=== PATIENT | male | born 1990 | race Caucasian/White ===

== ENCOUNTER 2017-04-26 11:28 | Emergency (ER) | payer OTHER ==
[~2017-04-26] VITALS: Ht 185.4 cm; Wt 106.4 kg
[~2017-04-26 11:28] MED LIST: ADD/10 PO
[2017-04-26 11:30] VITALS: TEMP 36.4; Ht 185.4 cm; Wt 106.4 kg
--- NOTE | 2017-04-26 12:33 | DIAGNOSTIC IMAGING REPORT ---
L-SPINE MIN 4 VIEWS ROUTINE CLINICAL HISTORY: 26 years-old Male presenting with lumbar pain. TECHNIQUE: Frontal, bilateral oblique, and lateral views lumbar spine and coned in lateral view of the lumbosacral junction were obtained. COMPARISON: 04/16/2014. FINDINGS: Pars defect of L5 on left and possibly on the right, although this is less well demonstrated. Previously suggested retrolisthesis of L3 on L4 is likely due to technique/projectional. Normal lumbar lordosis without evidence of kieran or retrolisthesis. Vertebral body heights and intervertebral disc spaces preserved. No osseous neural foraminal narrowing. No radiographic evidence of acute fracture or subluxation. Nonobstructive bowel gas pattern. IMPRESSION: Left pars defect at L5 and possible right pars defect at L5. Otherwise normal lumbar spine. Electronically signed by: Derrick Lowe M.D. 04/26/2017 12:32 PM Dictated Date/Time: 04/26/2017 12:29 PM
[2017-04-26] MEDS ORDERED: TRAM-10 PO (13:45)
[2017-04-26 13:52] VITALS: BP 110/99; PULSE 66; O2SAT 99
[2017-04-26] MEDS ORDERED: ACET-749 PO (13:53)
--- NOTE | 2017-04-27 06:44 | EMERGENCY ROOM VISIT NOTE ---
ED Visit Note First contact with patient: 11:39 Chief Complaint: Lower back pain. History of Present Illness: Mr. Santos is a 26-year-old white male who ambulates into the ED complaining of lumbar back pain. Historically patient denies any previous significant injuries or surgeries to the lumbar back. Patient reports he was to see his primary care provider for his ongoing lumbar back pain 2 weeks ago and reports x-rays were performed but he never received results of his x-rays; his x-rays were performed to the [facility] and I was able to obtain a copy which showed a negative lumbar sacral spine equivocal findings of left L5 pars deficit was noted and recommended additional or repeat radiography or MRI. He reports on discharge from his PCPs office he was prescribed Flexeril which has not been helping his pain. He reports his pain has been gone on for the last 5-6 months. He reports initially it was mild and has gradually gotten worse. He denies any precipitating traumatic event. Currently he describes his pain as a sharp sensation. He places his discomfort in the L2-L3 area just right of the spine. He reports radiation of his pain down to the L5 area. He rates his discomfort 8/10. His pain worsens with palpation, flexion and laterally bending of the lumbar spine. He has not identified any alleviating factors related to the pain. He reports he has been taken his muscle relaxants without relief of his discomfort. He denies any associated symptoms including fevers, chills, sweats, skin eruptions, skin color changes, abdominal pain, nausea, vomiting, diarrhea, constipation, rectal bleeding, black/tarry stools, or nares symptoms, hematuria, genital paresthesias , bowel and bladder dysfunction, lower extremity weakness/numbness/tingling. Review of Systems: As noted above in history of present illness. 8 body systems were reviewed and found to be negative as noted above. Past Medical History: Patient denies. Current Medications: Patient denies. Allergies to Medications: Tramadol, penicillin, ketorolac tromethamine. Social History: Patient is currently employed; he feels safe in his home environment; he admits to tobacco use. Physical Examination: Vital Signs: Date Time Temp Pulse Resp B/P (MAP) Pulse Ox O2 Delivery O2 Flow Rate FiO2 04/26/17 13:52 66 18 110/99 99 Room Air 04/26/17 11:30 36.4 75 18 134/89 98 Room Air GENERAL: 26-year-old male in mild distress due to pain, nontoxic-appearing, afebrile and hemodynamically stable. NEUROLOGICAL: Awake, alert and oriented to person, place and time. Answering questions appropriately and following commands. Normal gait. SKIN: Warm, dry and pink. No soft tissue eruptions or trauma noted. HEENT: Atraumatic and normocephalic. BACK: No tenderness over the bony cervical and thoracic spine. Mild tenderness in the L2-L3 area just right of the spine. No local paraspinous muscle spasm. No tenderness over the sacroiliac joints. Decreased range of motion in flexion, extension and lateral bending at the waist due to pain. Negative straight leg raise test. No CVA tenderness. THORAX: Lungs sounds are clear to auscultation and equal bilaterally with symmetrical chest wall. ABDOMEN: Flat, soft and nontender. Positive bowel sounds in all quadrants. No guarding, rigidity or organomegaly. LOWER EXTREMITIES: Moves all extremities well on command and with purpose. 2+ patellar and Achilles deep tendon reflexes intact and equal bilaterally. 4/5 muscle strength in hip flexion, extension, abduction and abduction, internal and external rotation. Knee flexion and extension and ankle plantar flexion and dorsiflexion. Distal pulses and capillary refill are intact. He was able to distinguish light sensations through all dermatomes of the feet. ED Course: Patient is assessed as noted above. Patient's medication list was reviewed. Lumbar Spine X-Rays: Were reviewed by myself and read by the radiologist showing left pars deficit at L5 and possible right pars deficit at L5, normal lumbar lordosis without evidence of anterior or retrolisthesis, 4T Mayela body heights and disc spaces preserved, no osseous normal for any narrowing and no evidence of acute fracture or subluxation. Patient was educated about today's findings and instructed on his treatment plan ; he verbalized understanding and agreement with this plan. Should be noted that at time of discharge patient was prescribed Tylenol with Codeine and felt this would not help his pain because of previous oral surgery required Percocet. I did not feel comfortable prescribing Percocet; I did check the state database and no red flags were noted. Clinical Impression: Lumbar back pain. Pars deficit L5 bilaterally. Decision-Making: Initially my differential diagnosis I considered fracture, subluxation, muscle spasm, muscle strain, herniated disc and other causes. Disposition: Patient discharged home in stable condition; prior to departure he was reassessed and subjectively reported he was feeling the same. Plan: Comfort measures including a sliding pain scale of ibuprofen, acetaminophen and Tylenol No. 3 and ice were discussed with the patient. Patient was encouraged to follow-up with Dr. Machado, back specialist, for definitive care and treatment. Patient was encouraged return ED for worsening pain, fevers, abdominal pain, genital paresthesias, bowel and bladder dysfunction, leg weakness/numbness/ tingling or any new/concerning symptoms.
== END 2017-04-26 14:00 | disposition home or self-care (01) ==
LOC: C.EDB 11:31 → C.EDD 14:00
DX: M54.5 Low back pain (principal); Z72.0 Tobacco use

== ENCOUNTER 2017-09-01 12:34 | Emergency (ER) | payer OTHER ==
[~2017-09-01] VITALS: Ht 185.4 cm; Wt 95.2 kg
[~2017-09-01 12:34] MED LIST changes: +ACET300T3 PO; -ADD/10 PO
[2017-09-01 12:43] VITALS: TEMP 37.2; Ht 185.4 cm; Wt 95.2 kg
[2017-09-01] MEDS ORDERED: ONDANSETRON INJ 2 MG/ML 2 ML VIAL IV STA (12:55)
[2017-09-01] MEDS ORDERED: MoRPHine SULFATE 4 MG/ML 1 ML CARP\\VIAL IV STA (12:55)
[2017-09-01] MEDS ORDERED: CLINDAMYCIN IV 900 MG in DEXTROSE 5% 100ML 100 ML IV ONE (13:00)
[2017-09-01] MEDS ORDERED: OXYC-90 PO (13:15)
[2017-09-01] MEDS ORDERED: CLIN300C2 PO (13:15)
[2017-09-01 15:02] VITALS: BP 134/99; PULSE 96; O2SAT 97
--- NOTE | 2017-09-01 15:02 | EMERGENCY ROOM VISIT NOTE ---
History First contact with patient: 12:47 Chief Complaint: DENTAL PAIN Stated Complaint: ABCESS TOOTH History of Present Illness The patient is a 26 year old male who presents to the Emergency Room with complaints of left upper abdominal pain for the past 2 days. The patient reports that the pain is increasing, and started to notice swelling of the face last evening. The patient is concerned that he has an abscessed tooth. He denies any prior history of left upper dental problems. He has had dental pain in the past due to impacted wisdom teeth. He denies any recent sinus congestion , headaches, neck pain, fevers or chills. He rates his discomfort a 9 out of 10. He has taken ibuprofen without relief of his discomfort. Review of Systems 10 system review was performed and was negative except for pertinent positives and negatives as indicated in history of present illness Past Medical/Surgical History Medical Problems: (1) No Known Active Medical Problems Family History No pertinent family history Social History Smoking Status: Current Every Day Smoker Alcohol Use: none Drug Use: none Marital Status: single Occupation Status: unemployed Current/Historical Medications Scheduled Clindamycin Hcl (Cleocin), 300 MG PO QID Scheduled PRN Acetaminophen/Codeine (Tylenol W/Codeine #3), 1-2 TAB PO Q6H PRN for Pain Oxycodone Ir (Roxicodone Ir), 1-2 TAB PO Q4H PRN for Pain Physical Exam Vital Signs Date Time Temp Pulse Resp B/P (MAP) Pulse Ox O2 Delivery O2 Flow Rate FiO2 09/01/17 12:43 37.2 105 20 124/82 96 Room Air Physical Exam CONSTITUTIONAL: Healthy and well nourished. Alert and oriented X 3 with positive affect. HEENT: Mild left facial edema is noted without any overriding erythema. Normocephalic, atraumatic. Pupils equal, round and reactive. Ears and nares are clear. No tenderness to palpation or percussion of the left maxillary sinus. OROPHARYNX: Examination shows discomfort with palpation and percussion of the left posterior molars 14 and 15. No gingival erythema, fluctuance or pointing. LYMPHATICS: No preauricular or cervical chain adenopathy. NECK: Full active range of motion without discomfort. RESPIRATORY: Clear to auscultation bilaterally with no wheezing, crackles, rhonchi or stridor. CARDIOVASCULAR: Regular rate and rhythm with no murmurs, rubs or gallops. MUSCULOSKELETAL: Full range of motion of all joints without discomfort. INTEGUMENTARY: No rash or other significant dermatologic conditions noted. NEUROLOGIC: Facial sensations are intact. Medical Decision & Procedures Medications Administered Medications (Trade) Dose Ordered Sig/Zbigniew Route Start Time Stop Time Status Last Admin Dose Admin Clindamycin Phosphate 900 mg/ Dextrose 106 ml @ 100 mls/hr ONE ONCE IV 09/01/17 13:00 09/01/17 14:03 DC 09/01/17 13:29 100 MLS/HR Morphine Sulfate (MoRPHine SULFATE INJ) 4 mg NOW STAT IV 09/01/17 12:55 09/01/17 12:57 DC 09/01/17 13:11 4 MG Ondansetron HCl (Zofran Inj) 4 mg NOW STAT IV 09/01/17 12:55 09/01/17 12:57 DC 09/01/17 13:11 4 MG ED Course Patient history and physical exam were performed. Nurse's notes were reviewed. Vital signs were reviewed and were normal. IV access was established, and the patient was administered clindamycin 900 mg IV infusion. The patient was also administered IV morphine and Zofran for pain. Patient reports allergies to tramadol, penicillin and Toradol, all of which cause hives. As indicated in history of present illness, the patient is able to take ibuprofen without adverse reaction. The patient will be provided prescriptions for Cleocin and OxyIR 5 mg. He was encouraged to alternate ibuprofen and Tylenol for baseline pain relief. The patient was advised that he must follow-up with a dentist for definitive management and follow-up. He may also call his PCP as needed for pain management until he can find a dentist. The patient was advised that the emergency department does not provide dental services, referrals or chronic dental pain management. He is welcome to return for any developing fever or progressively worsening facial swelling. The patient was happy with plan of care, voiced understanding of all discharge instructions, and discharged with his , rating his pain a 4 out of 10. Medical Decision [place] Drug Monitoring Program Search Results: patient reviewed within database, no issues identified Medication Reconcilliation Current Medication List: was personally reviewed by me Blood Pressure Screening Patient's blood pressure: Normal blood pressure Impression Primary Impression: Dental infection Departure Information Prescriptions Oxycodone Ir (Roxicodone Ir) 5 Mg Tab 1-2 TAB PO Q4H Y for Pain, #15 TAB For Initial Treatment Prov: Poncho Rosenbaum PA 09/01/17 Clindamycin Hcl (CLEOCIN) 300 Mg Cap 300 MG PO QID for 10 Days, #40 CAP Prov: Poncho Rosenbaum PA 09/01/17 Referrals No Doctor, Assigned (PCP) Patient Instructions [facility]
[2018-03-18] MEDS ORDERED: HYDR-5688 PO (19:38)
[2018-03-18] MEDS ORDERED: CIPR0.3S OP (19:38)
== END 2017-09-01 15:00 | disposition home or self-care (01) ==
LOC: C.EDB 12:35 → C.EDD 15:00
DX: K04.7 Periapical abscess without sinus (principal); F17.200 Nicotine dependence, unspecified, uncomplicated

== ENCOUNTER 2017-12-30 01:02 | Emergency (ER) | payer OTHER ==
[~2017-12-30] VITALS: Ht 185.4 cm; Wt 99.2 kg
[~2017-12-30 01:02] MED LIST changes: -ACET300T3 PO; +OXYC1TAB3 PO
[2017-12-30 01:07] VITALS: Ht 185.4 cm; Wt 99.2 kg
[2017-12-30] MEDS ORDERED: ACETAMINOPHEN IV 1,000 MG in EMPTY BAG 0 ML IV ONE (01:30)
[2017-12-30] MEDS ORDERED: SODIUM CHLORIDE 0.9% 1000ML 1,000 ML, SODIUM CHLORIDE 0.9% 1000ML 1,000 ML IV ONE (01:30)
[2017-12-30] MEDS ORDERED: ACETAMINOPHEN 1000 MG/100 ML IV IV ONE (01:36)
[2017-12-30 01:47] LABS: BASO % 0.2 %; BASO ABS # 0.03 K/uL (0-0.2); EOS % 0.6 %; HEMATOCRIT 41.2 % (42-52); HEMOGLOBIN 14.5 g/dL (14.0-18.0); IG# 0.05 K/uL (0.00-0.02); LYMPH % 9.8 %; LYMPH ABS # 1.62 K/uL (1.2-3.4); MEAN CORPUSCULAR HEMOGLOBIN 30.3 pg (25-34); MEAN CORPUSCULAR HGB CONC 35.2 g/dl (32-36); MEAN PLATELET VOLUME 11.2 fL (7.4-10.4); MONO % 5.1 %; MONO ABS # 0.85 K/uL (0.11-0.59); NEUT ABS # 13.94 K/uL (1.4-6.5); PLATELET COUNT 207 K/uL (130-400); RED CELL DISTRIBUTION WIDTH CV 13.3 % (11.5-14.5); RED CELL DISTRIBUTION WIDTH SD 42.1 fL (36.4-46.3); WHITE BLOOD COUNT 16.59 K/uL (4.8-10.8)
[2017-12-30 02:04] LABS: ALBUMIN 4.1 gm/dl (3.4-5.0); CALCIUM 8.8 mg/dl (8.5-10.1); CREATININE 0.98 mg/dl (0.60-1.40); POTASSIUM 3.8 mmol/L (3.5-5.1)
[2017-12-30 02:07] LABS: TOTAL PROTEIN 7.7 gm/dl (6.4-8.2)
[2017-12-30 02:15] VITALS: TEMP 37.7
[2017-12-30 02:54] LABS: INFLUENZA B ANTIGEN Neg for Influ B (NEG)
[2017-12-30 03:13] VITALS: BP 108/55; PULSE 84; O2SAT 93
--- NOTE | 2017-12-30 06:51 | EMERGENCY ROOM VISIT NOTE ---
History First contact with patient: 01:11 Chief Complaint: FEVER Stated Complaint: FEVER,HEADACHE History of Present Illness The patient is a 27 year old male who presents to the Emergency Room with complaints of fever, chills, and cough symptoms that began tonight. The patient states that he was at home and reportedly had a temperature of 105.7F. Patient took Tylenol a few hours ago and this did seem to improve his symptoms. The patient is not having significant sore throat, ear pain, neck pain, head pain, chest pain, chest tightness, shortness breath, or abdominal pain. He is using the bathroom as normal. No known exposure to disease. The patient rates his discomfort a 2/10, and is here at the behest of his significant other. He does not report chronic medical disease. No photophobia. Review of Systems More than 10 systems were reviewed and otherwise negative with the exception of history of present illness. Past Medical/Surgical History Medical Problems: (1) No Known Active Medical Problems Family History No pertinent family history Social History Smoking Status: Current Every Day Smoker Alcohol Use: none Drug Use: none Marital Status: single Occupation Status: unemployed Current/Historical Medications Scheduled PRN Oxycodone Ir (Roxicodone Ir), 1-2 TAB PO Q4H PRN for Pain Physical Exam Vital Signs Date Time Temp Pulse Resp B/P (MAP) Pulse Ox O2 Delivery O2 Flow Rate FiO2 12/30/17 03:13 84 18 108/55 93 12/30/17 02:15 37.7 92 18 119/65 95 Room Air 12/30/17 01:07 37.5 104 18 126/71 96 Room Air Physical Exam VITALS: Vitals are noted on the nurse's note and reviewed by myself. Vital signs stable. GENERAL: Well-developed, well-nourished, white male, who is in no acute distress and resting comfortably. Patient is cooperative with the examination. HEAD: Normocephalic atraumatic. EARS: External ear normal. External auditory canals clear, tympanic membranes pearly mcgarry without erythema or effusion bilaterally. EYES: Pupils equal round and reactive to light and accommodation. Conjunctivae without injection, sclerae without icterus. Extraocular movements intact. NOSE: Patent, turbinates without inflammation or discharge. MOUTH: Mucous membranes moist. Tonsils are not enlarged. Pharynx without erythema, blood, or exudate. Uvula midline. Airway patent. NECK: Supple without nuchal rigidity. No lymphadenopathy. No thyromegaly. Cervical spine is nontender. No meningismus. Negative Brudzinski's and Kernig' s HEART: Regular rate and rhythm without murmurs gallops or rubs. LUNGS: Clear to auscultation bilaterally without wheezes, rales or rhonchi. No retractions or accessory muscle use. ABDOMEN: Positive normal bowel sounds x 4. Soft, nontender, without masses or organomegaly. No guarding or rebound tenderness. MUSCULOSKELETAL: No muscle atrophy, erythema, or edema noted. Full range of motion in all extremities. NEURO: Patient was alert and oriented to person place and time. CN II through XII grossly intact. No focal neurological deficits. Medical Decision & Procedures ER Provider Diagnostic Interpretation: CHEST 2 VIEWS ROUTINE CLINICAL HISTORY: fever. cough COMPARISON STUDY: Chest radiograph April 16, 2014. FINDINGS: Lung volumes are normal. No pneumothorax or pleural effusion is present. Pulmonary vascularity is normal. Cardiomediastinal silhouette is normal. Note is made of an apparent 4.8 cm opacity within the medial right lung base. This may contain a central lucency. Otherwise, the lungs are clear. No correlate is shown on the lateral projection. IMPRESSION: Apparent 4.8 cm opacity within the medial right lung base. This may reflect pneumonia, hernia or less likely mass given the patient's age. Equivocal cavitation. Post treatment radiographs to ensure resolution are recommended. If this persists, a chest CT is recommended. Laboratory Results 12/30/17 01:30 Red Blood Count 4.79, Mean Corpuscular Volume 86.0, Mean Corpuscular Hemoglobin 30.3, Mean Corpuscular Hemoglobin Concent 35.2, Mean Platelet Volume 11.2, Neutrophils (%) (Auto) 84.0, Lymphocytes (%) (Auto) 9.8, Monocytes (%) (Auto) 5.1, Eosinophils (%) (Auto) 0.6, Basophils (%) (Auto) 0.2, Neutrophils # (Auto) 13.94, Lymphocytes # (Auto) 1.62, Monocytes # (Auto) 0.85, Eosinophils # (Auto) 0.10, Basophils # (Auto) 0.03 12/30/17 01:30 Test 12/30/17 01:30 12/30/17 01:35 12/30/17 02:15 White Blood Count 16.59 K/uL (4.8-10.8) Red Blood Count 4.79 M/uL (4.7-6.1) Hemoglobin 14.5 g/dL (14.0-18.0) Hematocrit 41.2 % (42-52) Mean Corpuscular Volume 86.0 fL (80-100) Mean Corpuscular Hemoglobin 30.3 pg (25-34) Mean Corpuscular Hemoglobin Concent 35.2 g/dl (32-36) Platelet Count 207 K/uL (130-400) Mean Platelet Volume 11.2 fL (7.4-10.4) Neutrophils (%) (Auto) 84.0 % Lymphocytes (%) (Auto) 9.8 % Monocytes (%) (Auto) 5.1 % Eosinophils (%) (Auto) 0.6 % Basophils (%) (Auto) 0.2 % Neutrophils # (Auto) 13.94 K/uL (1.4-6.5) Lymphocytes # (Auto) 1.62 K/uL (1.2-3.4) Monocytes # (Auto) 0.85 K/uL (0.11-0.59) Eosinophils # (Auto) 0.10 K/uL (0-0.5) Basophils # (Auto) 0.03 K/uL (0-0.2) RDW Standard Deviation 42.1 fL (36.4-46.3) RDW Coefficient of Variation 13.3 % (11.5-14.5) Immature Granulocyte % (Auto) 0.3 % Immature Granulocyte # (Auto) 0.05 K/uL (0.00-0.02) Anion Gap 6.0 mmol/L (3-11) Est Creatinine Clear Calc Drug Dose 142.8 ml/min Estimated GFR () 123.7 Estimated GFR (Non- 106.7 BUN/Creatinine Ratio 12.2 (10-20) Calcium Level 8.8 mg/dl (8.5-10.1) Total Bilirubin 1.3 mg/dl (0.2-1) Aspartate Amino Transf (AST/SGOT) 19 U/L (15-37) Alanine Aminotransferase (ALT/SGPT) 31 U/L (12-78) Alkaline Phosphatase 108 U/L (45-117) Total Protein 7.7 gm/dl (6.4-8.2) Albumin 4.1 gm/dl (3.4-5.0) Globulin 3.6 gm/dl (2.5-4.0) Albumin/Globulin Ratio 1.1 (0.9-2) Influenza Type A Antigen Neg for Influ A (NEG) Influenza Type B Antigen Neg for Influ B (NEG) Bedside Lactic Acid Venous 0.69 mmol/L (0.90-1.70) Urine Color YELLOW Urine Appearance CLEAR (CLEAR) Urine pH 8.0 (4.5-7.5) Urine Specific [place] 1.009 (1.000-1.030) Urine Protein NEG (NEG) Urine Glucose (UA) NEG (NEG) Urine Ketones NEG (NEG) Urine Occult Blood NEG (NEG) Urine Nitrite NEG (NEG) Urine Bilirubin NEG (NEG) Urine Urobilinogen NEG (NEG) Urine Leukocyte Esterase NEG (NEG) Medications Administered Medications (Trade) Dose Ordered Sig/Zbigniew Route Start Time Stop Time Status Last Admin Dose Admin Sodium Chloride/ Sodium Chloride 2,000 ml @ 999 mls/hr Q2H1M ONCE IV 12/30/17 01:30 12/30/17 03:26 DC 12/30/17 01:43 999 MLS/HR Acetaminophen (Ofirmev Iv) 1,000 mg STK-MED ONCE IV 12/30/17 01:36 12/30/17 01:37 DC 12/30/17 01:43 1,000 MG ED Course Physical exam and history were performed. Nursing notes, EMR, and Medication List were personally reviewed. Patient appears to have feverish symptoms bring him to the emergency department tonight. On examination he does not appear toxic but does have a low-grade fever. IV access was established and labs are obtained. The patient was hydrated with 2 L normal saline and given Tylenol. The patient's blood work is as above and was reviewed. He does have an elevated white blood cell count of 16,000. He does not have gross anemia or significant electrolyte imbalance. Transaminases are not diagnostic. Influenza was negative. Lactic acid was negative. Blood cultures are pending. His remaining labs were fairly unremarkable. The case was discussed with my attending physician, Dr. Harrell, and we did review the patient's labs and x-rays. Our initial review did not reveal significant source of his infection. I discussed the findings at length with the patient. I explained that his x-ray will be reread in the morning and we would have blood culture reports in a few days. The patient will be treated conservatively with [id number] analgesics as this could be a viral infection. He is to follow-up with his primary care physician this afternoon, roughly 12 hours from now for a recheck. He understands that we will contact him if there is a discrepancy in his findings. The patient was pleased with this plan and voiced understanding. Of note the radiology read of the x-ray in the morning shows a possible pneumonia. The patient was contacted to return to the ER for CT imaging. The patient did note understanding of this, and stated that he would return for further testing. The chart was completed utilizing [employer] Speech Voice Recognition Software. Grammatical errors, random word insertions, pronoun errors, and incomplete sentences are an occasional consequence of this system due to software limitations, ambient noise, and hardware issues. Any formal questions or concerns about the content, text, or information contained within the body of this dictation should be directly addressed to the provider for clarification. . Medical Decision Differential diagnosis: Etiologies such as viral syndrome, otitis, pharyngitis, pneumonia, influenza, meningitis, urinary tract infection, sepsis, bacteremia, as well as others were entertained. Impression Primary Impression: Fever Departure Information Dispostion Home / Self-Care Condition GOOD Referrals Kale Joshua M.D. (PCP) Forms HOME CARE DOCUMENTATION FORM, Work Instructions, Additional Instructions: Patient was seen and evaluated today in the emergency department fo medical care. Return to work on 01/01/2018. Please excuse. IMPORTANT VISIT INFORMATION Patient Instructions My [facility] Additional Instructions You were seen and evaluated today on an emergency basis only. This is not a substitute for, or an effort to provide, complete comprehensive medical care. It is not possible to recognize and treat all injuries or illnesses in a single emergency department visit. For this reason it is recommended that you followup with your primary care physician later this afternoon for recheck of your condition Take Tylenol 1000 mg every 6 hours Drink plenty of fluids and remain well-hydrated You are welcome to return to the emergency department anytime with new, worsening, or concerning symptoms. Work Instructions Additional Work Instructions: Patient was seen and evaluated today in the emergency department for medical care. Return to work on 01/01/2018. Please excuse.
--- NOTE | 2017-12-30 07:02 | DIAGNOSTIC IMAGING REPORT ---
CHEST 2 VIEWS ROUTINE CLINICAL HISTORY: fever. cough COMPARISON STUDY: Chest radiograph April 16, 2014. FINDINGS: Lung volumes are normal. No pneumothorax or pleural effusion is present. Pulmonary vascularity is normal. Cardiomediastinal silhouette is normal. Note is made of an apparent 4.8 cm opacity within the medial right lung base. This may contain a central lucency. Otherwise, the lungs are clear. No correlate is shown on the lateral projection. IMPRESSION: Apparent 4.8 cm opacity within the medial right lung base. This may reflect pneumonia, hernia or less likely mass given the patient's age. Equivocal cavitation. Post treatment radiographs to ensure resolution are recommended. If this persists, a chest CT is recommended. Electronically signed by: Fidel Crump M.D. 12/30/2017 7:01 AM Dictated Date/Time: 12/30/2017 6:52 AM
== END 2017-12-30 03:14 | disposition home or self-care (01) ==
LOC: C.EDB 01:03 → C.EDA 03:14
DX: R50.9 Fever, unspecified (principal); D72.829 Elevated white blood cell count, unspecified; R05 Cough; F17.200 Nicotine dependence, unspecified, uncomplicated